=== PATIENT | male | born 1945 | race Caucasian/White ===

== ENCOUNTER 2016-11-13 20:26 | Emergency (ER) | payer OTHER ==
[2016-11-13 18:31] LABS: WBC (NOT ORDERED) (RFLEX) 0 (0-5)
[2016-11-13 18:40] LABS: BASOPHILS 0.4 %; BASOPHILS ABSOLUTE 0.05 10/3/uL (0.0-0.16); EOSINOPHILS 1.9 %; EOSINOPHILS ABSOLUTE 0.23 10/3/uL (0.0-0.53); ER CBC TAT 0 Hrs 08 Mins; HEMATOCRIT 36.6 % (40.0-51.0); HEMOGLOBIN 12.1 g/dL (13.6-17.8); IMMATURE GRANULOCYTES 0.5 %; IMMATURE GRANULOCYTES ABSOLUTE 0.06 10/3/uL (0.0-0.11); LYMPHOCYTES 18.3 %; LYMPHOCYTES ABSOLUTE 2.21 10/3/uL (0.67-4.30); MEAN CORPUS HGB CONC 33.1 g/dL (32.0-36.0); MEAN CORPUSCULAR HEMOGLOB 31.3 pg (26.0-34.0); MEAN PLATELET VOLUME 10.7 fL (9.2-13.0); MONOCYTES 4.9 %; MONOCYTES ABSOLUTE 0.59 10/3/uL (0.21-1.20); NEUTROPHILS ABSOLUTE 8.94 10/3/uL (2.02-8.40); PLATELET COUNT 287 10/3/uL (150-400); RBC DISTRIBUTION WIDTH 15.6 % (12.0-16.0); RED CELL COUNT 3.87 10/6/uL (4.7-6.1); WHITE BLOOD CELLS 12.1 10/3/uL (4.5-10.5)
[2016-11-13 18:41] LABS: MANUAL DIFF NO %; MEAN CORPUSCULAR VOLUME 94.6 fL (80-100)
[2016-11-13 18:53] LABS: ASCORBIC ACID (UR NOT ORDER) NEG (NEG); BILIRUBIN, URINE NEGATIVE (NEG); ER URINALYSIS TAT 0 Hrs 22 Mins; KETONE, URINE NEGATIVE (NEG); LEUKOCYTE ESTERASE(NOT OR NEG (NEG); NITRITE (URINE) NEG (NEG)
[2016-11-13 18:56] LABS: BUN (BLOOD UREA NITROGEN) 87 MG/DL (6-23); CALCIUM, SERUM 9.3 MG/DL (8.5-10.4); CHEST PAIN PROFILE TAT 0 Hrs 24 Mins; CHLORIDE, SERUM 106 MMOL/L (96-112); CO2 (CARBON DIOXIDE) 26 MMOL/L (24-34); CREATININE 3.81 MG/DL (0.70-1.30); GFR AFRICAN AMERICAN 17 ML/MIN (>=60); GFR NON AFRICAN AMERICAN 15 ML/MIN (>=60); SODIUM, SERUM 139 MMOL/L (135-148); TROPONIN I 0.02 NG/ML (<0.05)
[2016-11-13 18:57] LABS: GLUCOSE, SERUM 122 MG/DL (60-99); POTASSIUM, SERUM 5.5 MMOL/L (3.5-5.3)
[2016-11-13 19:02] LABS: INTERNATIONAL NORMAL RATI 1.2 UNITS (-); PARTIAL THROMBO TIME 36.6 SEC (22.5-37.2); PROTIME (NOT ORD) 14.8 SEC (12.0-14.5)
[~2016-11-13 20:26] MED LIST: *UNABLE1; ACET500CAP PO; AMARYL4 PO; ASA5GR PO; ATV.5 PO; BUM1 PO; C1; HUMULIN R1 ML SC; INSNOVN SC; INSNOVR SC; JANTOVEN1 MG PO; JANTOVEN5 MG PO; L80 PO; LANTUS; LEVOTHYROXIN175 MCG PO; LIPITOR40 PO; LOP50 PO; MCZ25 PO; MIRALAXPKT PO; OMEPRAZOLE PO; PR25 PO; PRILOSEC40 MG PO; PROTONIX PO; SODBICAR10 PO; SPIRO25 PO; SPIRO50 PO; ULTRAM50 PO; VIBRA-TAB 100100 MG PO; VITAMIN D2000 UNIT PO; Z300 PO
== END 2016-11-14 01:28 | disposition home or self-care (01) ==
LOC: ER 20:26
PROVIDERS: Emergency Medicine
DX: R42 Dizziness and giddiness (principal); E11.9 Type 2 diabetes mellitus without complications; I48.91 Unspecified atrial fibrillation; N18.9 Chronic kidney disease, unspecified; M19.90 Unspecified osteoarthritis, unspecified site; Z86.73 Personal history of transient ischemic attack (TIA), and cerebral infarction without residual deficits; Z88.0 Allergy status to penicillin; Z88.5 Allergy status to narcotic agent; Z88.6 Allergy status to analgesic agent; Z88.8 Allergy status to other drugs, medicaments and biological substances; Z79.82 Long term (current) use of aspirin; Z79.4 Long term (current) use of insulin; Z79.899 Other long term (current) drug therapy
CPT/HCPCS: 70450; 80048; 81001; 83735; 84484; 85025; 85610; 85730; 93005; 99284; A9270-GY